=== PATIENT | male | born 1965 | race Caucasian/White ===

== ENCOUNTER 2016-09-19 08:09 | Day surgery (SDC) | payer OTHER ==
[~2016-09-19 08:09] MED LIST: DIPHENHYDRAMINE HCL 50 MG/ML VIAL ONE; EPINEPHRINE INJ 1 MG/10 ML DISP.SYRIN ONE; FLUMAZENIL INJ 0.5 MG/5 ML VIAL IV ONE; GLUCAGON,HUMAN RECOMB 1 MG INJ ONE; NALOXONE HCL INJ/PF 0.4 MG/1 ML SDV ONE; ONDANSETRON HCL INJ/PF 4 MG/2 ML SDV ONE
[2016-09-19] MEDS: MIDAZOLAM 2 MG/2 ML INJ ONE ×3 (08:36→08:46)
[2016-09-19] MEDS: FENTANYL CITRATE INJ/PF 100 MCG/2 ML AMPUL ONE ×2 (08:39→08:40)
--- NOTE | 2016-09-19 09:10 | Operative Report ---
Operative Report DATE OF SURGERY: 09/19/16 Operative Report: The risks, benefits and alternatives of the procedure including risks of bleeding, perforation requiring surgery are explained to the patient detail and informed consent was obtained. The patient was taken back to the endoscopy suite and placed in the left, lateral decubital position. Timeout was called. Conscious sedation medications are provided. A rectal examination was done which did not reveal any masses, tears or fissures. An Olympus video scope was inserted into the patient's rectum. The scope was then gradually advanced all the way to the cecum. The cecum was identified by the usual anatomical landmarks of the ileocecal valve as well as the appendiceal office. Photodocumentation was obtained. Prep was good. Scope was then sequentially pulled back. The rest segments of the colon including the ascending colon, hepatic flexure, transverse colon, splenic flexure, descending colon and finding to the rectosigmoid portions of the colon. Retroflexion maneuver was performed. PREOPERATIVE DIAGNOSIS: Colorectal cancer screening. POSTOPERATIVE DIAGNOSIS: 2 polyps one in the cecum and one in the sigmoid status post removal splenic polypectomy. Diverticulosis. Internal hemorrhoids OPERATION: Colonoscopy with snare polypectomy SURGEON: CHRISTINA CHILEL ANESTHESIA: Moderate Sedation - 6 mg of Versed, 100 mcg of fentanyl. 4 mg of Zofran. Conscious sedation monitoring time 30 minutes. TISSUE REMOVED OR ALTERED: Polyps are retrieved. COMPLICATIONS: None. ESTIMATED BLOOD LOSS: None. INTRAOPERATIVE FINDINGS: As described above. PROCEDURE: Patient tolerated the procedure well. No immediate postprocedure complications are noted. Patient discharged in good condition. Discharge date 09/19/2016. Discharge diet: Regular. Discharge activity: Regular. 2-3 week follow-up to discuss findings. Surveillance colonoscopy in 3-5 years. Patient is instructed to call the office should there be any further problems or questions. We will wait on pathology.
[2016-09-19 10:14] VITALS: BP 131/77
== END 2016-09-19 10:00 | disposition home or self-care (01) ==
LOC: END 08:09
PROVIDERS: ATTEND Internal Medicine Gastroenterology
PROC: 0DBP8ZX Excision of Rectum, Via Natural or Artificial Opening Endoscopic, Diagnostic (ICD-10-PCS; 2016-09-19)
PROC: 0DBN8ZX Excision of Sigmoid Colon, Via Natural or Artificial Opening Endoscopic, Diagnostic (ICD-10-PCS; principal; 2016-09-19 08:30)
DX: Z12.11 Encounter for screening for malignant neoplasm of colon (principal); K63.5 Polyp of colon; K57.30 Diverticulosis of large intestine without perforation or abscess without bleeding; K64.8 Other hemorrhoids; I10 Essential (primary) hypertension; E78.00 Pure hypercholesterolemia, unspecified
CPT/HCPCS: 45385; 88305 ×2; J2250; J3010; J2405; J0171; J1200; J1610; J2310; J3490